=== PATIENT | female | born 1935 | race Caucasian/White ===

== ENCOUNTER 2023-01-30 14:12 | Observation (INO) ==
[2023-01-30 15:59] LABS: Hemoglobin 11.9 g/dL (11.5-14.3); Mean Corpuscular Hemoglobin 29.8 pg (27-33); Mean Corpuscular Hgb Conc 33.8 g/dL (31-36); Mean Platelet Volume 7.3 fL (7.5-11.2); Platelet Count 364 10^3/uL (150-450); Red Blood Count 3.98 10^6/uL (3.63-4.92); Red Cell Distribution Width 14.5 % (12-17); White Blood Count 20.2 10^3/uL (3.8-11.8)
[2023-01-30 16:08] LABS: INR 1.08 (0.83-1.13)
[2023-01-30 16:38] LABS: ABS Basophils 0.1 10^3/uL (0.0-0.1); ABS Eosinophils 0.1 10^3/uL (0.0-0.5); ABS Lymphocytes 1.5 10^3/uL (1.0-4.8); ABS Monocytes 1.6 10^3/uL (0.0-0.9); ABS Neutrophils 16.9 10^3/uL (1.5-7.6); ABS Nucleated RBC 0.01 10^3/ul; Eosinophil % 0.5 %; Lymphocyte % 7.7 %
[2023-01-30 16:44] LABS: ALT 9 U/L (7-52); Albumin 3.8 g/dL (3.2-5.2); Alkaline Phosphatase 76 U/L (35-149); Anion Gap 9 mmol/L (2-16); Blood Urea Nitrogen 15 mg/dL (6-24); C Reactive Protein 308.86 mg/L (<8.01); CO2 Carbon Dioxide 24 mmol/L (22-32); Calcium 9.5 mg/dL (8.6-10.3); Chloride 93 mmol/L (101-111); Creatinine, Serum 0.88 mg/dL (0.51-0.95); Globulin 3.7 g/dL (2-4); Glucose 172 mg/dL (70-100); Sodium 126 mmol/L (135-145); Total Bilirubin 1.4 mg/dL (0.2-1.0); Total Protein 7.5 g/dL (6.4-8.9); eGFR CKD-EPI 63.2 (>60)
[2023-01-30] MEDS ORDERED: Zosyn per Pharmacy NOTE FOLLOW UP SCH (18:00)
[2023-01-30] MEDS ORDERED: Labetalol IV 5 MG/ML 20 ml VIAL IV PUSH PRN (18:25)
[2023-01-30] MEDS ORDERED: Zosyn 3.375 GM IV - ED ONCE IV ONE (18:30)
[2023-01-30] MEDS ORDERED: Lactated Ringers 1000 ml BAG 1,000 ML IV SCH (19:00)
[2023-01-30 21:03] LABS: Activated Partial Thrombo Time 24.7 seconds (26.0-38.0); INR 1.13 (0.83-1.13)
[2023-01-30] MEDS: ZOSYN 3.375 GM Q8H per EXTENDED INFUSION IV SCH (23:32)
[2023-01-30] MEDS: Heparin 5000 UNITS/ML 1 mL VIAL SUBCUT SCH (23:41)
[2023-01-31] MEDS ORDERED: ZOSYN 3.375 GM Q8H per EXTENDED INFUSION IV SCH (02:00)
[2023-01-31 05:41] LABS: Hematocrit 31.7 % (35-45); Hemoglobin 10.9 g/dL (11.5-14.3); Mean Corpuscular Hemoglobin 30.2 pg (27-33); Mean Corpuscular Hgb Conc 34.4 g/dL (31-36); Mean Corpuscular Volume 87.8 fL (80-97); Mean Platelet Volume 7.3 fL (7.5-11.2); Platelet Count 369 10^3/uL (150-450); Red Blood Count 3.61 10^6/uL (3.63-4.92); Red Cell Distribution Width 15.2 % (12-17); White Blood Count 15.8 10^3/uL (3.8-11.8)
[2023-01-31 05:58] LABS: Calcium 9.3 mg/dL (8.6-10.3); Creatinine, Serum 0.97 mg/dL (0.51-0.95); Magnesium 1.6 mg/dL (1.9-2.7); Potassium 3.7 mmol/L (3.5-5.0); Potassium Redraw 3.7 mmol/L (3.5-5.0); eGFR CKD-EPI 56.2 (>60)
[2023-01-31 06:11] LABS: Osmolality Serum 273 mOsm/kg (275-295)
[2023-01-31] MEDS: Ondansetron 4 mg VIAL 2 MG/ML 2 ml VIAL IV PRN (06:29)
[2023-01-31] MEDS: Acetaminophen IV 1 GM/100ML 1,000 MG/100 ML BAG IV PRN (06:31)
[2023-01-31] MEDS: Heparin 5000 UNITS/ML 1 mL VIAL SUBCUT SCH (08:44)
[2023-01-31] MEDS: ZOSYN 3.375 GM Q8H per EXTENDED INFUSION IV SCH ×3 (08:58→22:52)
[2023-01-31] MEDS ORDERED: Magnesium Sulfate 2 gm BAG 2 GM/50 ML BAG IVPB ONE (10:56)
[2023-01-31] MEDS ORDERED: Labetalol IV 5 MG/ML 20 ml VIAL IV PUSH PRN (10:56)
[2023-01-31 12:30] LABS: Albumin 3.7 g/dL (3.2-5.2); Albumin/Globulin Ratio 1.1 (1-3); Direct Bilirubin 0.8 mg/dL (0.03-0.18); Globulin 3.4 g/dL (2-4); Indirect Bilirubin 0.9 mg/dL (0.3-1.0); Total Bilirubin 1.7 mg/dL (0.2-1.0); Total Protein 7.1 g/dL (6.4-8.9)
[2023-01-31 12:41] LABS: Albumin 3.3 g/dL (3.2-5.2); Calcium 8.8 mg/dL (8.6-10.3); Creatinine, Serum 1.4 mg/dL (0.51-0.95); Globulin 3.2 g/dL (2-4); Potassium 3.6 mmol/L (3.5-5.0); Total Bilirubin 1.8 mg/dL (0.2-1.0); Total Protein 6.5 g/dL (6.4-8.9); eGFR CKD-EPI 36.2 (>60)
[2023-01-31] MEDS: KCL 10 MEQ/50 ML IVPREMIX 10 MEQ/50 ML BAG IV SCH ×2 (12:57→15:23)
[2023-01-31] MEDS: NS 0.9% 1000 ml BAG 1,000 ML IV SCH ×2 (13:13→22:52)
[2023-01-31 15:57] LABS: ABS Lymphocytes 1.1 10^3/uL (1.0-4.8); ABS Monocytes 0.6 10^3/uL (0.0-0.9); ABS Neutrophils 10.5 10^3/uL (1.5-7.6); Hematocrit 30.7 % (35-45); Hemoglobin 10.5 g/dL (11.5-14.3); Lymphocyte % 8.8 %; Mean Corpuscular Hgb Conc 34.3 g/dL (31-36); Mean Corpuscular Volume 87.6 fL (80-97); Mean Platelet Volume 7.1 fL (7.5-11.2); Platelet Count 361 10^3/uL (150-450); Red Cell Distribution Width 14.8 % (12-17); White Blood Count 12.3 10^3/uL (3.8-11.8)
[2023-01-31 18:29] LABS: Urine Osmo 521 mOsm/kg (150-1150)
[2023-01-31 20:03] LABS: ALT 8 U/L (7-52); Albumin 3.4 g/dL (3.2-5.2); Alkaline Phosphatase 73 U/L (35-149); Anion Gap 11 mmol/L (2-16); Blood Urea Nitrogen 27 mg/dL (6-24); CO2 Carbon Dioxide 19 mmol/L (22-32); Calcium 8.6 mg/dL (8.6-10.3); Chloride 96 mmol/L (101-111); Creatinine, Serum 1.29 mg/dL (0.51-0.95); Globulin 3.3 g/dL (2-4); Glucose 160 mg/dL (70-100); Magnesium 2.3 mg/dL (1.9-2.7); Sodium 126 mmol/L (135-145); Total Bilirubin 1.5 mg/dL (0.2-1.0); Total Protein 6.7 g/dL (6.4-8.9); eGFR CKD-EPI 39.9 (>60)
[2023-01-31 20:51] LABS: Phosphorus 3.5 mg/dL (2.5-5.0); Potassium Redraw 3.8 mmol/L (3.5-5.0)
[2023-02-01] MEDS: Acetaminophen IV 1 GM/100ML 1,000 MG/100 ML BAG IV PRN (00:33)
[2023-02-01 07:15] LABS: ABS Lymphocytes 0.8 10^3/uL (1.0-4.8); ABS Monocytes 0.5 10^3/uL (0.0-0.9); ABS Neutrophils 9.9 10^3/uL (1.5-7.6); Hematocrit 29.1 % (35-45); Hemoglobin 9.9 g/dL (11.5-14.3); Lymphocyte % 7.1 %; Mean Corpuscular Hemoglobin 29.7 pg (27-33); Mean Corpuscular Hgb Conc 34.1 g/dL (31-36); Mean Corpuscular Volume 87.1 fL (80-97); Mean Platelet Volume 7.5 fL (7.5-11.2); Platelet Count 406 10^3/uL (150-450); Red Blood Count 3.34 10^6/uL (3.63-4.92); Red Cell Distribution Width 14.8 % (12-17); White Blood Count 11.3 10^3/uL (3.8-11.8)
[2023-02-01] MEDS ORDERED: ceFOXitin 2 GM IVPREMIX 2 GM/50 ML BAG ONE (07:31)
[2023-02-01] MEDS ORDERED: Bupivacaine 0.25% SDV 30 ML ONE (07:35)
[2023-02-01] MEDS ORDERED: Iohexol 180 (CONTRAST) 10 ML SDV IV ONE (07:35)
[2023-02-01 07:36] LABS: Calcium 8.6 mg/dL (8.6-10.3); Creatinine, Serum 1.25 mg/dL (0.51-0.95); Magnesium 2.2 mg/dL (1.9-2.7); Phosphorus 3.8 mg/dL (2.5-5.0); Potassium 3.6 mmol/L (3.5-5.0); eGFR CKD-EPI 41.5 (>60)
[2023-02-01] MEDS ORDERED: Phenylephrine 40 mcg/mL 10mL (400mcg) SYRINGE ONE (08:22)
[2023-02-01] MEDS ORDERED: Ondansetron 4 mg VIAL 2 MG/ML 2 ml VIAL ONE (08:22)
[2023-02-01] MEDS ORDERED: Propofol 10 MG/ML 20 ML BTL ONE (08:22)
[2023-02-01] MEDS ORDERED: Dexamethasone IV 4 MG/ML VIAL 1 ml VIAL ONE (08:22)
[2023-02-01] MEDS ORDERED: Rocuronium 50 mg VIAL 10 mg/ml 5 ml VIAL (50 mg) ONE (08:22)
[2023-02-01] MEDS ORDERED: Lidocaine 2% PF 5 ML VIAL ONE (08:22)
[2023-02-01] MEDS ORDERED: fentaNYL 100 mcg/2 ml 50 MCG/ML VIAL ONE ×2 (08:22→08:51)
[2023-02-01] MEDS ORDERED: HYDROcodone/ACETAMIN 5/325 mg TAB PO PRN (09:58)
[2023-02-01] MEDS ORDERED: Morphine 2 MG/ML SYRINGE IV PRN (10:13)
[2023-02-01] MEDS: ZOSYN 3.375 GM Q8H per EXTENDED INFUSION IV SCH ×3 (11:33→19:38)
[2023-02-01] MEDS ORDERED: NS 0.9% 1000 ml BAG 1,000 ML IV SCH (17:56)
[2023-02-01] MEDS: Ondansetron 4 mg VIAL 2 MG/ML 2 ml VIAL IV PRN (21:44)
[2023-02-02] MEDS ORDERED: Prochlorperazine 5 mg/ml 2 ml VIAL (10 mg) IV PRN (02:34)
[2023-02-02] MEDS ORDERED: Labetalol IV 5 MG/ML 20 ml VIAL IV PUSH PRN (02:34)
[2023-02-02] MEDS: ZOSYN 3.375 GM Q8H per EXTENDED INFUSION IV SCH (04:31)
[2023-02-02 07:03] LABS: ABS Lymphocytes 0.9 10^3/uL (1.0-4.8); ABS Monocytes 0.8 10^3/uL (0.0-0.9); ABS Neutrophils 10.6 10^3/uL (1.5-7.6); Eosinophil % 0.1 %; Hemoglobin 9.6 g/dL (11.5-14.3); Mean Corpuscular Hemoglobin 29.9 pg (27-33); Mean Corpuscular Hgb Conc 34.2 g/dL (31-36); Mean Corpuscular Volume 87.5 fL (80-97); Mean Platelet Volume 7.2 fL (7.5-11.2); Platelet Count 443 10^3/uL (150-450); Red Cell Distribution Width 15.1 % (12-17); White Blood Count 12.4 10^3/uL (3.8-11.8)
[2023-02-02 07:23] LABS: Calcium 8.5 mg/dL (8.6-10.3); Creatinine, Serum 1.05 mg/dL (0.51-0.95); Magnesium 2.1 mg/dL (1.9-2.7); Phosphorus 2.6 mg/dL (2.5-5.0); Potassium 3.7 mmol/L (3.5-5.0); eGFR CKD-EPI 51.1 (>60)
[2023-02-02] MEDS ORDERED: Potassium Chloride LIQUID 20 MEQ/15 ML LIQUID PO ONE (07:46)
[2023-02-02 10:35] VITALS: BP 131/49
== END 2023-02-02 12:15 | disposition home or self-care (01) ==
LOC: EDHOLD 14:12 → ED 14:12 → SUATTDRO 17:45 → MEDTELE 20:08
PROVIDERS: ADMIT Hospitalist; ATTEND Internal Medicine